=== PATIENT | female | born 1970 | race Caucasian/White ===

== ENCOUNTER 2022-02-15 08:38 | Emergency (ER) | payer MEDICAID ==
[~2022-02-15] VITALS: Ht 162.6 cm; Wt 72.7 kg
[2022-02-15 08:42] VITALS: BP 142/97
[2022-02-15] MEDS ORDERED: HYDROcodone/acetaminophen 10/325mg tab PO ONE (11:35)
== END 2022-02-15 12:47 | disposition home or self-care (01) ==
LOC: ER 08:39
DX: S83.92XA Sprain of unspecified site of left knee, initial encounter (principal); M25.562 Pain in left knee; X58.XXXA Exposure to other specified factors, initial encounter; Y93.89 Activity, other specified; Y92.89 Other specified places as the place of occurrence of the external cause; Y99.8 Other external cause status
CPT/HCPCS: 29505; 73564; 99284